=== PATIENT | male | born 1980 | race Caucasian/White ===

== ENCOUNTER → 2020-11-19 | Outpatient (REF) | payer BC | LOC: M LAB REF 13:09 | PROVIDERS: ATTEND Specialist | DX: J06.9 Acute upper respiratory infection, unspecified (principal) ==

== ENCOUNTER → 2022-09-22 | Outpatient (CLI) | payer BC ==
[2022-09-22 11:06] LABS: BASO # 0.1 10^3/uL (0.0-0.2); BASO % 0.6 % (0.0-1.0); EOS # 0.2 10^3/uL (0.0-0.5); EOS % 1.6 % (0.0-3.0); HEMATOCRIT 40.9 % (42.0-52.0); HEMOGLOBIN 13.5 g/dl (13.5-17.5); LYMPH # 0.9 10^3/uL (1.5-5.0); LYMPH % 7.8 % (24.0-44.0); MONO # 1.2 10^3/uL (0.0-0.8); MONO % 11.1 % (2.0-8.0); NEUTROPHILS # 8.6 10^3/uL (1.5-8.5); NEUTROPHILS % 78.4 % (36.0-66.0); PLATELET COUNT, AUTOMATED 443 10^3/uL (150-450); RED BLOOD COUNT 4.35 10^6/uL (4.30-6.10)
[2022-09-22 11:16] LABS: ALBUMIN 3.4 G/DL (3.2-5.2); ALKALINE PHOSPHATASE 76 U/L (46-116); ALT/SGPT 29 U/L (7.0-40); AST/SGOT 18 U/L (<34); BILIRUBIN,TOTAL 0.6 MG/DL (0.3-1.2); BLOOD UREA NITROGEN 7 MG/DL (9-23); CALCIUM LEVEL 9.4 MG/DL (8.5-10.1); CARBON DIOXIDE LEVEL 30 MMOL/L (20-31); CHLORIDE LEVEL 100 MMOL/L (98-107); CHOLESTEROL LEVEL 133 MG/DL (<200); CHOLESTEROL RISK RATIO 3.86 (<5); CREATININE FOR GFR 0.78 MG/DL (0.70-1.30); GLOMERULAR FILTRATION RATE > 60.0 (>60); GLUCOSE, FASTING 97 MG/DL (60-100); HDL CHOLESTEROL 34.4 MG/DL (>40); LDL CHOLESTEROL 77.2 MG/DL (<100); NON-HDL-C 98.6 MG/DL; POTASSIUM SERUM 4.3 MMOL/L (3.5-5.1); SODIUM LEVEL 136 MMOL/L (136-145); THYROID STIMULATING HORMONE 0.938 uIU/ML (0.55-4.78); TOTAL 25(OH) VITAMIN D 30.2 NG/ML (20.0-100.0); TOTAL PROTEIN 5.8 G/DL (5.7-8.2); TRIGLYCERIDES LEVEL 107 MG/DL (<150)
[2022-09-22 11:17] LABS: FREE T4 1.09 NG/DL (0.89-1.76)
[2022-09-22 12:09] LABS: HEMOGLOBIN A1c 4.8 % (4.0-6.0)
== END ==
LOC: M PLALAB 07:36
PROVIDERS: ATTEND Physician Assistant
DX: Z13.29 Encounter for screening for other suspected endocrine disorder (principal)

== ENCOUNTER → 2022-10-03 | Outpatient (CLI) | payer BC | LOC: M PLAIMG 14:17 | PROVIDERS: ATTEND Physician Assistant | DX: J32.9 Chronic sinusitis, unspecified (principal) ==

== ENCOUNTER → 2023-04-02 | Outpatient (CLI) | payer OTHER ==
[2023-04-02 16:56] LABS: BASO # 0.1 10^3/uL (0.0-0.2); BASO % 0.6 % (0.0-1.0); EOS # 0.2 10^3/uL (0.0-0.5); EOS % 1.7 % (0.0-3.0); HEMATOCRIT 48.9 % (42.0-52.0); HEMOGLOBIN 15.9 g/dl (13.5-17.5); LYMPH # 0.9 10^3/uL (1.5-5.0); LYMPH % 10.5 % (24.0-44.0); MEAN CORPUSCULAR HEMOGLOBIN 31.4 pg (27.0-33.0); MEAN CORPUSCULAR HGB CONC 32.5 g/dl (32.0-36.5); MEAN CORPUSCULAR VOLUME 96.6 fl (80.0-96.0); MONO # 1.1 10^3/uL (0.0-0.8); NEUTROPHILS # 6.6 10^3/uL (1.5-8.5); NEUTROPHILS % 74.6 % (36.0-66.0); PLATELET COUNT, AUTOMATED 294 10^3/uL (150-450); RED BLOOD COUNT 5.06 10^6/uL (4.30-6.10); WHITE BLOOD COUNT 8.9 10^3/uL (4.0-10.0)
[2023-04-11 03:06] LABS: STREP PNEUMO TYPE 1 <0.1 ug/mL (>1.3); STREP PNEUMO TYPE 12F 0.2 ug/mL (>1.3); STREP PNEUMO TYPE 14 0.1 ug/mL (>1.3); STREP PNEUMO TYPE 18C <0.1 ug/mL (>1.3); STREP PNEUMO TYPE 19A <0.1 ug/mL (>1.3); STREP PNEUMO TYPE 19F 0.3 ug/mL (>1.3); STREP PNEUMO TYPE 23F 0.1 ug/mL (>1.3); STREP PNEUMO TYPE 3 <0.1 ug/mL (>1.3); STREP PNEUMO TYPE 4 <0.1 ug/mL (>1.3); STREP PNEUMO TYPE 6B 0.2 ug/mL (>1.3); STREP PNEUMO TYPE 7F <0.1 ug/mL (>1.3); STREP PNEUMO TYPE 8 0.3 ug/mL (>1.3); STREP PNEUMO TYPE 9N 0.2 ug/mL (>1.3); STREP PNEUMO TYPE 9V <0.1 ug/mL (>1.3)
== END ==
LOC: M PLALAB 12:10
PROVIDERS: ATTEND Physician Assistant
DX: J32.9 Chronic sinusitis, unspecified (principal)

== ENCOUNTER 2023-04-20 08:05 | Inpatient (IN) | payer OTHER ==
[~2023-04-20] VITALS: Ht 188 cm; Wt 90.1 kg
[2023-04-20] MEDS ORDERED: ACETAMINOPHEN 500 MG TAB PO ONE (08:40)
[2023-04-20] MEDS ORDERED: NS 1,000 ML IV ONE (08:40)
[2023-04-20 09:10] LABS: BASO % 0.2 % (0.0-1.0); EOS # 0.1 10^3/uL (0.0-0.5); EOS % 0.5 % (0.0-3.0); HEMATOCRIT 44.8 % (42.0-52.0); HEMOGLOBIN 15.4 g/dl (13.5-17.5); LYMPH # 0.4 10^3/uL (1.5-5.0); LYMPH % 3.8 % (24.0-44.0); MEAN CORPUSCULAR HEMOGLOBIN 31.8 pg (27.0-33.0); MEAN CORPUSCULAR HGB CONC 34.4 g/dl (32.0-36.5); MEAN CORPUSCULAR VOLUME 92.6 fl (80.0-96.0); MONO # 0.3 10^3/uL (0.0-0.8); MONO % 2.9 % (2.0-8.0); NEUTROPHILS # 9.4 10^3/uL (1.5-8.5); NEUTROPHILS % 92.3 % (36.0-66.0); PLATELET COUNT, AUTOMATED 172 10^3/uL (150-450); RED BLOOD COUNT 4.84 10^6/uL (4.30-6.10); WHITE BLOOD COUNT 10.2 10^3/uL (4.0-10.0)
[2023-04-20] MEDS ORDERED: NS 2,660 ML in IV 1 EA IV ONE (09:10)
[2023-04-20] MEDS ORDERED: AZITHROMYCIN 250MG TABLET PO ONE (09:15)
[2023-04-20] MEDS ORDERED: cefTRIAXone SOD 1 GM in D5W MINI-BAG PLUS 50 ML IV ONE (09:15)
[2023-04-20 09:24] LABS: ALBUMIN 4.1 G/DL (3.2-5.2); ALKALINE PHOSPHATASE 58 U/L (46-116); ALT/SGPT 46 U/L (7.0-40); AST/SGOT 29 U/L (<34); BILIRUBIN,TOTAL 0.8 MG/DL (0.3-1.2); BLOOD UREA NITROGEN 10 MG/DL (9-23); CALCIUM LEVEL 9.3 MG/DL (8.5-10.1); CARBON DIOXIDE LEVEL 21 MMOL/L (20-31); CHLORIDE LEVEL 106 MMOL/L (98-107); CREATININE FOR GFR 0.73 MG/DL (0.70-1.30); GLOMERULAR FILTRATION RATE > 60.0 (>60); GLUCOSE, FASTING 81 MG/DL (60-100); POTASSIUM SERUM 4.2 MMOL/L (3.5-5.1); SODIUM LEVEL 142 MMOL/L (136-145)
[2023-04-20] MEDS ORDERED: guaiFENesin DM LIQ 10ML UD PO PRN (09:55)
[2023-04-20] MEDS ORDERED: IPRATROPIUM 0.5MG/ALBUTEROL 2.5MG INH SOL UD 3ML (DUONEB) NEB PRN (09:55)
[2023-04-20] MEDS ORDERED: ACETAMINOPHEN TAB 650MG DOSE (2X325MG) PO PRN (09:55)
[2023-04-20 10:15] LABS: APPEARANCE, URINE CLEAR (CLEAR); BACTERIA, URINE AUTO NEGATIVE (NEGATIVE); BILIRUBIN, URINE AUTO NEGATIVE (NEGATIVE); BLOOD, URINE BLOOD NEGATIVE (NEGATIVE); COLOR, URINE YELLOW (YELLOW); GLUCOSE, URINE (UA) AUTO NEGATIVE (NEGATIVE); INR 0.98; KETONE, URINE AUTO TRACE mg/dL (NEGATIVE); LEUKOCYTE ESTERASE, URINE AUTO NEGATIVE (NEGATIVE); MUCUS, URINE SMALL (NEGATIVE); NITRITE, URINE AUTO NEGATIVE (NEGATIVE); PARTIAL THROMBOPLASTIN TIME 20.6 SECONDS (24.8-34.2); PROTEIN, URINE AUTO NEGATIVE (NEGATIVE); PROTHROMBIN TIME 12.7 SECONDS (12.5-14.5); RBC, URINE AUTO 0 /HPF (0-3); SPECIFIC GRAVITY URINE AUTO 1.012 (1.002-1.035); SQUAMOUS EPITHELIAL CELL UR AU 0 /HPF (0-6); UROBILINOGEN, URINE AUTO 0.2 mg/dL (0.0-2.0); WBC, URINE AUTO 0 /HPF (0-3)
[2023-04-20 10:15] LABS: AMYLASE 81 U/L (30-118)
[2023-04-20 10:17] LABS: VENOUS BASE EXCESS -4.6 (-2.0-2.0); VENOUS HCO3 18.8 MMOL/L (23.0-27.0); VENOUS O2 SATURATION 98.8 % (60.0-80.0); VENOUS PARTIAL PRESSURE CO2 30.6 mmHg (38.0-50.0); VENOUS PH 7.407 UNITS (7.330-7.430); VENOUS STANDARD HCO3 20.7 MMOL/L; VENOUS TOTAL CO2 19.8 MMOL/L (24.0-28.0)
[2023-04-20] MEDS ORDERED: MED REC IN PROGRESS XX SCH (10:25)
[2023-04-20 10:28] LABS: PROCALCITONIN <0.04 ng/ml
[2023-04-20] MEDS ORDERED: CETI-24 PO (10:31)
[2023-04-20] MEDS ORDERED: ALBU8.5H PO (10:31)
[2023-04-20] MEDS ORDERED: HOME MED LIST COMPLETE! XX SCH (10:40)
[2023-04-20 10:52] LABS: AMYLASE 67 U/L (30-118)
[2023-04-20] MEDS ORDERED: ISOVUE-370 76% 100ML VIAL As Ordered ONE (10:53)
[2023-04-20] MEDS ORDERED: ENOXAPARIN 40MG/0.4ML SYRINGE (J1650 PER 10MG) SC ONE (11:00)
[2023-04-20] MEDS: KETOROLAC 30 MG/ML 1ML VIAL IV SCH ×2 (11:40→18:19)
[2023-04-20] MEDS: IPRATROPIUM 0.5MG/ALBUTEROL 2.5MG INH SOL UD 3ML (DUONEB) NEB SCH ×3 (11:45→21:04)
[2023-04-20 11:47] LABS: MONO SCRN NEGATIVE (NEGATIVE)
[2023-04-20 12:26] LABS: IMMUNOGLOBULIN A < 33.0 MG/DL (40-350); IMMUNOGLOBULIN G < 140 MG/DL (650-1600); IMMUNOGLOBULIN M < 21.0 MG/DL (50-300)
[2023-04-20] MEDS: NS 1,000 ML IV SCH ×2 (12:37→16:01)
[2023-04-20 15:05] VITALS: BP 131/79; TEMP 98.1; O2SAT 96
[2023-04-20 21:34] VITALS: BP 125/76; TEMP 98.2; O2SAT 95
[2023-04-21] VITALS (7 sets, daily range): BP systolic 115–146; BP diastolic 67–91; TEMP 97.1–98.2; O2SAT 95–99
[2023-04-21] MEDS: KETOROLAC 30 MG/ML 1ML VIAL IV SCH ×2 (00:20→05:56)
[2023-04-21 06:33] LABS: BASO % 0.1 % (0.0-1.0); HEMATOCRIT 36.7 % (42.0-52.0); LYMPH # 0.8 10^3/uL (1.5-5.0); LYMPH % 6.1 % (24.0-44.0); MEAN CORPUSCULAR HEMOGLOBIN 32.2 pg (27.0-33.0); MEAN CORPUSCULAR HGB CONC 33.8 g/dl (32.0-36.5); MEAN CORPUSCULAR VOLUME 95.3 fl (80.0-96.0); MONO # 0.7 10^3/uL (0.0-0.8); MONO % 5.8 % (2.0-8.0); NEUTROPHILS # 10.6 10^3/uL (1.5-8.5); NEUTROPHILS % 86.1 % (36.0-66.0); PLATELET COUNT, AUTOMATED 145 10^3/uL (150-450); RED BLOOD COUNT 3.85 10^6/uL (4.30-6.10); WHITE BLOOD COUNT 12.4 10^3/uL (4.0-10.0)
[2023-04-21 06:34] LABS: HEMOGLOBIN 12.4 g/dl (13.5-17.5)
[2023-04-21 06:52] LABS: BLOOD UREA NITROGEN 12 MG/DL (9-23); CALCIUM LEVEL 8.1 MG/DL (8.5-10.1); CARBON DIOXIDE LEVEL 24 MMOL/L (20-31); CHLORIDE LEVEL 108 MMOL/L (98-107); CREATININE FOR GFR 0.63 MG/DL (0.70-1.30); GLOMERULAR FILTRATION RATE > 60.0 (>60); GLUCOSE, FASTING 135 MG/DL (60-100); POTASSIUM SERUM 3.8 MMOL/L (3.5-5.1); SODIUM LEVEL 140 MMOL/L (136-145)
[2023-04-21] MEDS: IPRATROPIUM 0.5MG/ALBUTEROL 2.5MG INH SOL UD 3ML (DUONEB) NEB SCH ×3 (07:33→16:00)
[2023-04-21] MEDS ORDERED: IMMUNE GLOBULIN 10% 0 GM in IV 1 EA IV SCH (07:35)
[2023-04-21] MEDS ORDERED: diphenhydrAMINE 50MG CAP PO ONE (09:00)
[2023-04-21] MEDS ORDERED: ACETAMINOPHEN 500 MG TAB PO ONE (09:00)
[2023-04-21] MEDS ORDERED: cefTRIAXone SOD 2 GM in D5W MINI-BAG PLUS 50 ML IV SCH (09:00)
[2023-04-21] MEDS ORDERED: AZITHROMYCIN 250MG TABLET PO SCH (09:00)
[2023-04-21] MEDS ORDERED: ENOXAPARIN 40MG/0.4ML SYRINGE (J1650 PER 10MG) SC SCH (09:00)
[2023-04-21] MEDS ORDERED: CEFD1CAP9 PO (09:56)
[2023-04-21] MEDS ORDERED: AZIT-12 PO ×2 (09:56→14:23)
[2023-04-21] MEDS ORDERED: IMMUNE GLOBULIN 10% 10 GM in IV 1 EA IV ONE (10:00)
[2023-04-21 10:53] LABS: PROCALCITONIN 6.32 ng/ml
[2023-04-21] MEDS ORDERED: IMMUNE GLOBULIN 10% 80 GM in IV 1 EA IV ONE (11:00)
[2023-04-21 11:35] LABS: ERYTHROCYTE SEDIMENTATION RATE 8 mm/hr (0-15)
[2023-04-21] MEDS ORDERED: KETOROLAC 30 MG/ML 1ML VIAL IV PRN (12:00)
[2023-04-21] MEDS ORDERED: CEFD300CAP PO (14:23)
[2023-04-21 18:50] LABS: IMMUNOGLOBULIN G 1576 MG/DL (650-1600)
[2023-04-21 19:02] LABS: IMMUNOGLOBULIN A < 33.0 MG/DL (40-350); IMMUNOGLOBULIN M < 21.0 MG/DL (50-300)
== END 2023-04-21 18:57 | disposition home or self-care (01) | DRG 871 ==
LOC: EDBD 08:05 → M ED 08:05 → M ED INP 09:49 → M MSPAV 15:13
PROVIDERS: ADMIT General Practice; ATTEND General Practice
DX: A41.9 Sepsis, unspecified organism (principal); J15.9 Unspecified bacterial pneumonia; D80.1 Nonfamilial hypogammaglobulinemia; E87.20 Acidosis, unspecified; R16.1 Splenomegaly, not elsewhere classified; J32.9 Chronic sinusitis, unspecified; B97.4 Respiratory syncytial virus as the cause of diseases classified elsewhere; Z85.79 Personal history of other malignant neoplasms of lymphoid, hematopoietic and related tissues; Z92.21 Personal history of antineoplastic chemotherapy; Z85.820 Personal history of malignant melanoma of skin; Z79.899 Other long term (current) drug therapy

== ENCOUNTER → 2023-05-10 | Outpatient (CLI) | payer OTHER ==
[~2023-05-10] MED LIST: ALBU8.5H PO; AZIT-12 PO; CEFD1CAP9 PO; CEFD300CAP PO; CETI-24 PO
[2023-05-10 12:19] LABS: BASO # 0.1 10^3/uL (0.0-0.2); BASO % 1.3 % (0.0-1.0); EOS # 0.3 10^3/uL (0.0-0.5); EOS % 4.5 % (0.0-3.0); HEMATOCRIT 45.5 % (42.0-52.0); LYMPH % 16.5 % (24.0-44.0); MEAN CORPUSCULAR HEMOGLOBIN 30.9 pg (27.0-33.0); MEAN CORPUSCULAR VOLUME 93.8 fl (80.0-96.0); MONO # 0.6 10^3/uL (0.0-0.8); MONO % 10.2 % (2.0-8.0); NEUTROPHILS # 4.1 10^3/uL (1.5-8.5); NEUTROPHILS % 67.2 % (36.0-66.0); PLATELET COUNT, AUTOMATED 260 10^3/uL (150-450); RED BLOOD COUNT 4.85 10^6/uL (4.30-6.10); WHITE BLOOD COUNT 6.1 10^3/uL (4.0-10.0)
[2023-05-10 12:33] LABS: ERYTHROCYTE SEDIMENTATION RATE 14 mm/hr (0-15)
== END ==
LOC: M RAD 11:42
PROVIDERS: ATTEND Nurse Practitioner Adult Health
DX: R05.1 Acute cough (principal)

== ENCOUNTER → 2023-05-29 | Outpatient (CLI) | payer OTHER ==
[~2023-05-29] MED LIST changes: +LEVO1TAB39 PO; +PRED20TA
[2023-05-29 14:33] LABS: IMMUNOGLOBULIN G 714 MG/DL (650-1600)
[2023-05-29 15:20] LABS: HEPATITIS C VIRUS ABY INDEX < 0.02 INDEX (<0.8)
[2023-05-29 15:21] LABS: HEPATITIS B CORE ANTIBODY IGM NEGATIVE (NEGATIVE)
[2023-05-29 16:24] LABS: IMMUNOGLOBULIN A < 33.0 MG/DL (40-350)
== END ==
LOC: M PLALAB 10:27
PROVIDERS: ATTEND Physician Assistant
DX: Z01.84 Encounter for antibody response examination (principal)

== ENCOUNTER → 2023-06-13 | Outpatient (REF) | payer OTHER | LOC: M LAB REF 17:41 | PROVIDERS: ATTEND Nurse Practitioner Adult Health | DX: J02.9 Acute pharyngitis, unspecified (principal) ==

== ENCOUNTER 2023-08-03 10:24 | Outpatient (CLI) | payer BC ==
[~2023-08-03] VITALS: Ht 188 cm; Wt 90.9 kg
[~2023-08-03 10:24] MED LIST changes: +ALBUTEROL SULFATE 2.5MG/0.5ML INH NEB SOLN INH PRN; +EPINEPHrine INJ 1 MG/ML 1ML AMP IM PRN; +NS 1,000 ML IV SCH; +diphenhydrAMINE 50MG/ML VIAL IV PRN; +methylPREDNISolone 125MG 2ML VIAL IV PRN
[2023-08-03 10:35] VITALS: BP 152/92; O2SAT 100
[2023-08-03] MEDS: diphenhydrAMINE 25MG PO PRIOR TO INFUSION PO ONE (10:49)
[2023-08-03] MEDS: ACETAMINOPHEN 650MG PO PRIOR TO INFUSION PO ONE (10:49)
[2023-08-03] MEDS: IMMUNE GLOBULIN 10% 40 GM in IV 1 EA IV ONE (11:05)
[2023-08-03] MEDS: IMMUNE GLOBULIN 10% 5 GM in IV 1 EA IV ONE (11:06)
[2023-08-03 11:22] VITALS: BP 138/98; O2SAT 95
[2023-08-03 11:56] VITALS: BP 143/86; O2SAT 98
[2023-08-03 12:29] VITALS: BP 142/88; O2SAT 97
[2023-08-03 13:36] VITALS: BP 144/86; O2SAT 98
[2023-08-03 14:15] VITALS: BP 161/91; O2SAT 100
== END 2023-08-03 14:15 | disposition home or self-care (01) ==
LOC: M INFU 10:24
PROVIDERS: ATTEND Internal Medicine Medical Oncology
DX: D80.1 Nonfamilial hypogammaglobulinemia (principal)
CPT/HCPCS: 96365; 96366; J1459

== ENCOUNTER 2023-10-19 07:25 | Outpatient (CLI) | payer BC ==
[~2023-10-19] VITALS: Ht 188 cm; Wt 98.6 kg
[2023-10-19 07:25] VITALS: BP 136/80; O2SAT 97
[~2023-10-19 07:25] MED LIST changes: +AUGM500T34 PO
[2023-10-19] MEDS: diphenhydrAMINE 25MG IV PRIOR TO INFUSION IV ONE (07:44)
[2023-10-19] MEDS: ACETAMINOPHEN 650MG PO PRIOR TO INFUSION PO ONE (07:44)
[2023-10-19] MEDS: IMMUNE GLOBULIN 10% 40 GM in IV 1 EA IV ONE (07:54)
[2023-10-19] MEDS: IMMUNE GLOBULIN 10% 5 GM in IV 1 EA IV ONE (07:55)
[2023-10-19 08:30] VITALS: BP 128/74; O2SAT 98
[2023-10-19 09:30] VITALS: BP 130/79; O2SAT 100
[2023-10-19 10:00] VITALS: BP 126/88; O2SAT 100
[2023-10-19 11:15] VITALS: BP 136/94; O2SAT 97
== END 2023-10-19 11:20 ==
LOC: M INFU 07:25
PROVIDERS: ATTEND Specialist
DX: D80.1 Nonfamilial hypogammaglobulinemia (principal)
CPT/HCPCS: 96365; 96366; 96367; J1200; J1459

== ENCOUNTER 2023-12-14 07:44 | Outpatient (CLI) | payer BC ==
[~2023-12-14] VITALS: Ht 188 cm; Wt 91.0 kg
[2023-12-14 08:05] VITALS: BP 142/88; O2SAT 100
[2023-12-14] MEDS: ACETAMINOPHEN 650MG PO PRIOR TO INFUSION PO ONE (08:09)
[2023-12-14] MEDS: diphenhydrAMINE 25MG IV PRIOR TO INFUSION IV ONE (08:10)
[2023-12-14] MEDS: IMMUNE GLOBULIN 10% 40 GM in IV 1 EA IV ONE (08:45)
[2023-12-14] MEDS: IMMUNE GLOBULIN 10% 5 GM in IV 1 EA IV ONE (08:46)
[2023-12-14 09:47] VITALS: BP 135/88; O2SAT 100
[2023-12-14 10:22] VITALS: BP 143/94; O2SAT 100
[2023-12-14 12:10] VITALS: BP 158/90; O2SAT 99
== END 2023-12-14 12:10 ==
LOC: M INFU 07:44
PROVIDERS: ATTEND Internal Medicine Medical Oncology
DX: D80.1 Nonfamilial hypogammaglobulinemia (principal)
CPT/HCPCS: 96365; 96366; 96367; J1200; J1459

== ENCOUNTER 2024-03-06 09:16 | Outpatient (CLI) | payer BC ==
[~2024-03-06] VITALS: Ht 188 cm; Wt 90.4 kg
[2024-03-06 09:25] VITALS: BP 167/97; O2SAT 98
[2024-03-06] MEDS: diphenhydrAMINE 25MG PO PRIOR TO INFUSION PO ONE (09:30)
[2024-03-06] MEDS: methylPREDNISolone 125MG 2ML VIAL IV ONE (09:30)
[2024-03-06] MEDS: ACETAMINOPHEN 650MG PO PRIOR TO INFUSION PO ONE (09:30)
[2024-03-06] MEDS: IMMUNE GLOBULIN 10% 10 GM in IV 1 EA IV ONE ×2 (09:35→12:42)
[2024-03-06 10:05] VITALS: BP 147/88; O2SAT 100
[2024-03-06 10:35] VITALS: BP 131/80; O2SAT 99
[2024-03-06] MEDS: IMMUNE GLOBULIN 10% 20 GM in IV 1 EA IV ONE (11:40)
[2024-03-06 12:46] VITALS: BP 158/90; O2SAT 99
[2024-03-06] MEDS: IMMUNE GLOBULIN 10% 5 GM in IV 1 EA IV ONE (13:12)
[2024-03-06 13:30] VITALS: BP 148/87; O2SAT 99
== END 2024-03-06 13:30 ==
LOC: M INFU 09:16
PROVIDERS: ATTEND Specialist
DX: D80.1 Nonfamilial hypogammaglobulinemia (principal)
CPT/HCPCS: 96365; 96366; J1459

== ENCOUNTER → 2024-05-01 | Outpatient (REF) | payer BC ==
[~2024-05-01] MED LIST changes: -ALBUTEROL SULFATE 2.5MG/0.5ML INH NEB SOLN INH PRN; -EPINEPHrine INJ 1 MG/ML 1ML AMP IM PRN; -NS 1,000 ML IV SCH; -diphenhydrAMINE 50MG/ML VIAL IV PRN; -methylPREDNISolone 125MG 2ML VIAL IV PRN
== END ==
LOC: M LAB REF 16:42
PROVIDERS: ATTEND Physician Assistant
DX: Z20.828 Contact with and (suspected) exposure to other viral communicable diseases (principal)

== ENCOUNTER → 2024-05-15 | Outpatient (CLI) | payer BC ==
[~2024-05-15] VITALS: Ht 188 cm; Wt 93.2 kg
[~2024-05-15] MED LIST changes: +ALBUTEROL SULFATE 2.5MG/0.5ML INH NEB SOLN INH PRN; +EPINEPHrine INJ 1 MG/ML 1ML AMP IM PRN; +NS (Normal Saline) 0.9% 1,000 ML IV SCH; +diphenhydrAMINE 50MG/ML VIAL IV PRN; +methylPREDNISolone 125MG 2ML VIAL IV PRN
[2024-05-15 10:50] VITALS: BP 152/92; O2SAT 100
[2024-05-15] MEDS: IMMUNE GLOBULIN 10% 10 GM in IV 1 EA IV ONE (10:53)
[2024-05-15] MEDS: diphenhydrAMINE 25MG PO PRIOR TO INFUSION PO ONE (10:54)
[2024-05-15] MEDS: ACETAMINOPHEN 650MG PO PRIOR TO INFUSION PO ONE (10:55)
[2024-05-15] MEDS: methylPREDNISolone 40MG 1ML VIAL IV ONE (10:55)
[2024-05-15 12:00] VITALS: BP 149/89; O2SAT 100
[2024-05-15 12:30] VITALS: BP 158/89; O2SAT 99
[2024-05-15] MEDS: IMMUNE GLOBULIN 10% 40 GM in IV 1 EA IV ONE (12:35)
[2024-05-15 13:00] VITALS: BP 158/89; O2SAT 97
[2024-05-15 14:45] VITALS: BP 160/88; O2SAT 99
== END ==
LOC: M INFU 10:37
PROVIDERS: ATTEND Specialist
DX: D80.1 Nonfamilial hypogammaglobulinemia (principal)
CPT/HCPCS: 96365; 96366; J1459

== ENCOUNTER 2024-09-04 08:58 | Outpatient (CLI) | payer BC ==
[~2024-09-04] VITALS: Ht 157.5 cm; Wt 91.8 kg
[~2024-09-04 08:58] MED LIST changes: +ALBUTEROL SULFATE 2.5MG/0.5ML INH CONCENTRATE NEB SOLN INH PRN; -ALBUTEROL SULFATE 2.5MG/0.5ML INH NEB SOLN INH PRN
[2024-09-04 09:05] VITALS: BP 155/91; O2SAT 99
[2024-09-04] MEDS: diphenhydrAMINE 50MG/ML VIAL IV ONE (09:17)
[2024-09-04] MEDS: ACETAMINOPHEN 650MG PO PRIOR TO INFUSION PO ONE (09:18)
[2024-09-04] MEDS: IMMUNE GLOBULIN 10% 40 GM in IV 1 EA IV ONE (09:30)
[2024-09-04] MEDS: IMMUNE GLOBULIN 10% 10 GM in IV 1 EA IV ONE (09:31)
[2024-09-04 10:00] VITALS: BP 136/86; O2SAT 98
[2024-09-04 10:30] VITALS: BP 136/95; O2SAT 98
[2024-09-04 11:00] VITALS: BP 133/88; O2SAT 98
[2024-09-04 12:00] VITALS: BP 155/88; O2SAT 100
[2024-09-04 12:56] VITALS: BP 156/99; O2SAT 97
== END 2024-09-04 12:59 | disposition home or self-care (01) ==
LOC: M INFU 08:58
PROVIDERS: ATTEND Specialist
DX: D80.1 Nonfamilial hypogammaglobulinemia (principal)
CPT/HCPCS: 96365; 96366; 96375; J1200; J1459

== ENCOUNTER 2025-03-19 08:29 | Outpatient (CLI) | payer BC ==
[~2025-03-19] VITALS: Ht 188 cm; Wt 90.9 kg
[2025-03-19 08:15] VITALS: BP 170/100; O2SAT 98
[~2025-03-19 08:29] MED LIST changes: +ALBUTEROL SULFATE 2.5 MG/0.5 ML INH CONCENTRATE NEB SOLN INH PRN; -ALBUTEROL SULFATE 2.5MG/0.5ML INH CONCENTRATE NEB SOLN INH PRN; +diphenhydrAMINE 50 MG/ML VIAL IV PRN; -diphenhydrAMINE 50MG/ML VIAL IV PRN; -methylPREDNISolone 125MG 2ML VIAL IV PRN
[2025-03-19 08:45] VITALS: BP 148/92
[2025-03-19] MEDS: IMMUNE GLOBULIN 10% 10 GM in IV 1 EA IV ONE (08:52)
[2025-03-19] MEDS: IMMUNE GLOBULIN 10% 40 GM in IV 1 EA IV ONE (08:53)
[2025-03-19] MEDS: diphenhydrAMINE 50 MG/ML VIAL IV ONE (08:55)
[2025-03-19 09:30] VITALS: BP 168/98; O2SAT 99
[2025-03-19 10:30] VITALS: BP 156/100; O2SAT 97
[2025-03-19 11:30] VITALS: BP 166/90; O2SAT 98
[2025-03-19 12:30] VITALS: BP 180/110; O2SAT 98
== END 2025-03-19 12:30 ==
LOC: M INFU 08:29
PROVIDERS: ATTEND Specialist
DX: D80.1 Nonfamilial hypogammaglobulinemia (principal)
CPT/HCPCS: 96365; 96366; J1459